=== PATIENT | male | born 1970 | race Two or more races ===

== ENCOUNTER 2019-08-12 08:19 | Emergency (ER) | payer SELFPAY ==
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
== END 2019-08-12 13:38 | disposition home or self-care (01) ==
LOC: JP.ED 08:19
DX: G12.21 Amyotrophic lateral sclerosis (principal)
CPT/HCPCS: 99283; 99284